=== PATIENT | female | born 1980 | race Caucasian/White ===

== ENCOUNTER 2020-11-30 17:19 | Emergency (ER) | payer MEDICAID, SELFPAY ==
[2020-11-30 17:22] VITALS: BP 131/76; PULSE 82; RESP 18; TEMP 36.6; O2SAT 99; BMI 28.5
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
[2020-11-30] MEDS: HYDROcodone Bitartrate/Apap 5/325 Tablet PO (18:58)
== END 2020-11-30 19:19 | disposition home or self-care (01) ==
LOC: ED 19:18
PROVIDERS: Emergency Provider Emergency Medicine
DX: M25.562 Pain in left knee (principal); M25.462 Effusion, left knee; M17.12 Unilateral primary osteoarthritis, left knee; X50.1XXA Overexertion from prolonged static or awkward postures, initial encounter; Y93.39 Activity, other involving climbing, rappelling and jumping off; Y92.9 Unspecified place or not applicable; M79.7 Fibromyalgia; Z79.899 Other long term (current) drug therapy; F17.210 Nicotine dependence, cigarettes, uncomplicated
CPT/HCPCS: 73564; 99283

== ENCOUNTER 2021-08-03 12:04 | Emergency (ER) | payer MEDICAID, SELFPAY ==
[2021-08-03 12:05] VITALS: BP 147/102; PULSE 84; RESP 18; TEMP 36.4; O2SAT 98; BMI 26.6
[2021-08-03 12:14] VITALS: BP 113/87; PULSE 73; O2SAT 99
--- NOTE | 2021-08-03 13:41 | EDS_ITS ---
HPI History of Present Illness Chief Complaint: Lower Extremity Injury Informant: patient Narrative Narrative: Patient is here with right knee pain. She states she twisted it about 2 weeks ago. She has been seen by orthopedics. She has been examined. X-rays have been done. She has an MRI in a few days. She was told that if the pain was too bad she should come to the emergency department. Patient has been trying ice and rest. The challenges is that she has allergies to almost all medicines that will help her. She gets upset stomach with nonsteroidals. She has hives with tramadol. There are extreme limitations on what we can provide for her. She has not had fevers chills. No swelling in the knee. Motion makes it worse and rest makes it better. PFSH PFSH Medical History Fibromyalgia Kidney stone Home Medications NK 08/03/21 [History Last Taken Unknown] Allergy/AdvReac Type Severity Reaction Status Date / Time NSAIDS (Non-Steroidal Allergy Upset Verified 08/03/21 12:06 Anti-Inflamma Stomach ondansetron HCl Allergy Nausea Verified 08/03/21 12:06 [From Zofran (as hydrochloride)] Penicillins Allergy Anaphylaxis Verified 08/03/21 12:06 tramadol Allergy Hives Verified 08/03/21 12:06 adhesive tape AdvReac Rash Verified 08/03/21 12:06 gabapentin AdvReac migraines Verified 08/03/21 12:06 ibuprofen [From Motrin] AdvReac Upset Verified 08/03/21 12:06 Stomach ketorolac tromethamine AdvReac Low blood Verified 08/03/21 12:06 [From Toradol] pressure Family History Mother Breast cancer Father Colon cancer Mother Leukemia Surgical History History of History of hysterectomy Social History Smoking Status: Current every day smoker tobacco type: cigarettes ROS ROS ED Constitutional Constitutional ED: Denies chills or fever(s) Respiratory/Chest Respiratory/Chest: Denies cough or dyspnea Gastrointestinal Gastrointestinal: Denies nausea or vomiting Musculoskeletal Musculoskeletal: Reports arthralgias Integumentary Denies abscess or rash Neurologic Neurologic: Denies paresthesias or weakness Endocrine Endocrinology: Denies polydipsia Hematologic/Lymphatic Hematologic/Lymphatic: Denies easy bleeding or easy bruising Allergic/Immunologic Allergic/Immunologic ED: Denies urticaria EXAM Physical Exam Const Vital Signs: 08/03/21 12:05 08/03/21 12:14 Temperature 97.6 F L Temperature Source Temporal Pulse Rate 84 73 Respiratory Rate 18 Blood Pressure 147/102 H 113/87 H Blood Pressure Mean 117 95 Pulse Ox 98 99 Oxygen Delivery Method Room Air Room Air Positive well nourished and well developed General Appearance ED: well developed and NAD HEENT Reports moist mucous membranes normocephalic and atraumatic Resp normal respiratory effort Extremity normal to inspection Extremity Narrative: Knee is not red. Is not warm to the touch. There is no effusion. She has mild tenderness with soft palpation anywhere around the knee. This is not localized to any 1 area. No skin changes. No rash. No contusions. There is no calf swelling or tenderness or pain. No distended veins. Range of motion is preserved. Knee is stable to drawer exam as well as varus and valgus stress Neuro Sensorium / Orientation: alert Psych mental status grossly normal Skin Lesions: no lesions Rashes: no rashes MDM MDM MDM Narrative Medical decision making narrative: I will give the patient oxycodone here. This patient has 47 prescriptions for controlled substances from 16 prescribers at 12 pharmacies in the last 2 years. I am not comfortable prescribing further narcotics. There is no sign or history of fracture. She has already had x- rays. There is no sign of infection. There is no effusion. There is no sign of ligamentous laxity. I do not think this condition requires narcotics. I think ice rest Tylenol will be appropriate. I will give oxycodone here as a single dose to try to knock the pain down to help her as much as I can. Discharge Plan Triage Chief Complaint: Lower Extremity Injury ED Provider: Blas Potts Dx/Rx/DC Orders Clinical Impression: Acute knee pain Instructions: ED Knee Pain of Uncertain Cause Prescriptions: No Action NK RF: 0 Primary Care Provider: KADEN LANCE Referrals: KADEN LANCE CRNP [Primary Care Provider] - 3-5 Days Disposition Disposition: Home, Self Care
[2021-08-03 13:46] VITALS: BP 127/85; PULSE 78; O2SAT 98
[2021-08-03] MEDS: oxyCODONE 5 MG Tablet PO (13:53)
== END 2021-08-03 14:26 | disposition home or self-care (01) ==
PROVIDERS: Emergency Provider Emergency Medicine; PCP Nurse Practitioner Family; Visit Provider Emergency Medicine
DX: M25.561 Pain in right knee (principal); F17.210 Nicotine dependence, cigarettes, uncomplicated; M79.7 Fibromyalgia; Z87.442 Personal history of urinary calculi; X50.1XXA Overexertion from prolonged static or awkward postures, initial encounter
CPT/HCPCS: 99282